=== PATIENT | female | born 1990 | race Two or more races ===

== ENCOUNTER 2018-08-07 08:11 | Emergency (ER) | payer MEDICAID ==
[~2018-08-07] VITALS: Ht 152.4 cm; Wt 72.2 kg
[2018-08-07 08:20] VITALS: BP 119/86
[2018-08-07] MEDS ORDERED: KETOROLAC TROMETH 60MG/2ML VIAL IM ONE (09:00)
== END 2018-08-07 09:53 | disposition home or self-care (01) ==
LOC: ER 08:11
DX: N39.0 Urinary tract infection, site not specified (principal)
CPT/HCPCS: 72070; 81002; 81025; 96372; 99284; J1885

== ENCOUNTER 2018-11-01 08:23 | Emergency (ER) | payer MEDICAID ==
[~2018-11-01] VITALS: Ht 152.4 cm; Wt 72.6 kg
[2018-11-01 08:28] VITALS: BP 114/84
== END 2018-11-01 10:16 | disposition home or self-care (01) ==
LOC: ER 08:35
DX: J20.9 Acute bronchitis, unspecified (principal); J02.9 Acute pharyngitis, unspecified